=== PATIENT | male | born 2000 | race Caucasian/White ===

== ENCOUNTER 2024-05-21 17:30 | Emergency (ER) | payer OTHER ==
[~2024-05-21] VITALS: Ht 167.6 cm; Wt 77.3 kg
[2024-05-21 17:36] VITALS: BP 124/67; PULSE 84; RESP 18; TEMP 98
== END 2024-05-21 20:03 | disposition home or self-care (01) ==
LOC: EMS 17:40
DX: S90.851A Superficial foreign body, right foot, initial encounter (principal); F17.210 Nicotine dependence, cigarettes, uncomplicated; F12.90 Cannabis use, unspecified, uncomplicated; W25.XXXA Contact with sharp glass, initial encounter; Y93.01 Activity, walking, marching and hiking; Y92.89 Other specified places as the place of occurrence of the external cause; Y99.8 Other external cause status
CPT/HCPCS: 99284; 73620-TC; Z7502

== ENCOUNTER 2024-06-26 14:55 | Emergency (ER) | payer OTHER ==
[~2024-06-26] VITALS: Ht 167.6 cm; Wt 78.0 kg
[2024-06-26 14:59] VITALS: TEMP 98
[2024-06-26] MEDS ORDERED: ACET-3385 PO (15:49)
[2024-06-26] MEDS: ACETAMINOPHEN 500 MG TABLET PO ONE (15:57)
[2024-06-26 16:26] VITALS: BP 124/80; PULSE 73; RESP 16
== END 2024-06-26 16:31 | disposition home or self-care (01) ==
LOC: EMS 14:55
DX: S53.441A Ulnar collateral ligament sprain of right elbow, initial encounter (principal); F17.210 Nicotine dependence, cigarettes, uncomplicated; F12.90 Cannabis use, unspecified, uncomplicated; X50.3XXA Overexertion from repetitive movements, initial encounter; Y93.89 Activity, other specified; Y92.89 Other specified places as the place of occurrence of the external cause; Y99.8 Other external cause status
CPT/HCPCS: 99283

== ENCOUNTER 2024-11-05 08:13 | Emergency (ER) | payer MEDICAID, OTHER ==
[~2024-11-05] VITALS: Ht 167.6 cm; Wt 77.3 kg
[~2024-11-05 08:13] MED LIST: ACET-3385 PO
[2024-11-05 08:16] VITALS: TEMP 98.6
[2024-11-05] MEDS: ONDANSETRON 4 MG TABLET PO ONE (08:41)
[2024-11-05 08:51] VITALS: BP 133/68; PULSE 65; RESP 18; O2SAT 100
== END 2024-11-05 09:07 | disposition home or self-care (01) ==
LOC: EMS 08:13
DX: A08.4 Viral intestinal infection, unspecified (principal); F12.90 Cannabis use, unspecified, uncomplicated; F17.210 Nicotine dependence, cigarettes, uncomplicated
CPT/HCPCS: 99283; Q0162

== ENCOUNTER 2025-05-20 08:59 | Emergency (ER) | payer SELFPAY ==
[~2025-05-20] VITALS: Ht 165.1 cm; Wt 75.0 kg
[2025-05-20 09:29] VITALS: BP 125/72; PULSE 94; RESP 18; TEMP 98.2; O2SAT 96
[2025-05-20 10:04] LABS: COVID AG,FIA SOURCE NASAL SWAB
[2025-05-20 10:40] LABS: SARS-COV2 (COVID) ANTIGEN,FIA Negative (Negative)
[2025-05-20 10:43] LABS: INFLUENZA TYPE A NEGATIVE FOR TYPE A (NEGATIVE); INFLUENZA TYPE B NEGATIVE FOR TYPE B (NEGATIVE)
[2025-05-20 13:27] LABS: APPEARANCE,URINE CLEAR (CLEAR); BILIRUBIN,URINE NEGATIVE (NEGATIVE); COLOR,URINE COLORLESS (YELLOW); GLUCOSE, URINE (UA) NEGATIVE (NEGATIVE); KETONES,URINE NEGATIVE (NEGATIVE); LEUKOCYTE ESTERASE ,URINE NEGATIVE (NEGATIVE); NITRATE,URINE NEGATIVE (NEGATIVE); OCCULT BLOOD,URINE NEGATIVE (NEGATIVE); PH,URINE 7.5 (5.0-8.0); PROTEIN,URINE NEGATIVE (NEGATIVE); UROBILINOGEN,URINE <=1.0 mg/dL (<=1.0)
[2025-05-20] MEDS ORDERED: HYDR-4268 TP (13:36)
[2025-05-20] MEDS ORDERED: HYDR-4808 PO (13:36)
== END 2025-05-20 14:39 | disposition home or self-care (01) ==
LOC: EMS 09:19
DX: B34.9 Viral infection, unspecified (principal); F41.9 Anxiety disorder, unspecified; F12.90 Cannabis use, unspecified, uncomplicated; F17.210 Nicotine dependence, cigarettes, uncomplicated; Z20.822 Contact with and (suspected) exposure to COVID-19
CPT/HCPCS: 81003; 87491; 87591; 87804; 99283